=== PATIENT | female | born 1960 | race Asian ===

== ENCOUNTER 2017-02-11 08:15 | Observation (INO) | payer MEDICARE, MEDICAID ==
[~2017-02-11] VITALS: Ht 154.9 cm; Wt 53.0 kg
[~2017-02-11 08:15] MED LIST: CLON1TAB23 PO; HYDR1TAB12 PO; PROZAC; RISP2TAB3 PO; TRAZODONE; VALP250C59 PO
[2017-02-11] MEDS ORDERED: ASPIRIN 81 MG TABLET CHEW PO ONE (09:00)
[2017-02-11] MEDS ORDERED: ASPIRIN 81 MG TABLET CHEW ONE (09:09)
[2017-02-11] MEDS ORDERED: TRAZ100T15 PO (09:19)
[2017-02-11] MEDS ORDERED: FLUO20CA19 PO (09:19)
[2017-02-11 09:35] LABS: HEMATOCRIT 42.6 % (34.6-47.8); HEMOGLOBIN 14.5 g/dL (11.7-16.4); WHITE BLOOD COUNT 9.7 x10^3/uL (3.4-10)
[2017-02-11 09:50] LABS: ASPARTATE AMINO TRANSFERASE 25 U/L (15-37); BLOOD UREA NITROGEN 10 mg/dL (7-18)
[2017-02-11 09:55] LABS: DAU SCREEN DISCLAIMER; HCG UR LOT HCG7030192
[2017-02-11 10:01] LABS: ACETAMINOPHEN < 2 mcg/mL (10-30); IS PT STATUS REG ER OR PRE ER? YES
[2017-02-11 10:01] LABS: HCG UR OBC PASS
[2017-02-11] MEDS ORDERED: POLYETHYLENE GLYCOL 17 GM PACKET PO PRN (13:30)
[2017-02-11] MEDS ORDERED: LORazepam 2 MG/ML, 1ML IM PRN (13:30)
[2017-02-11] MEDS ORDERED: NICOTINE 14MG/24 HR PATCH.TD24 TD SCH (13:30)
[2017-02-11] MEDS ORDERED: DOCUSATE 100 MG CAPSULE PO PRN (13:30)
[2017-02-11] MEDS ORDERED: ACETAMINOPHEN 325 MG TABLET PO PRN (13:30)
[2017-02-11] MEDS ORDERED: LORazepam 1MG TABLET PO PRN (13:30)
[2017-02-11] MEDS ORDERED: ONDANSETRON ODT 4 MG PO PRN (13:30)
[2017-02-11] MEDS ORDERED: OMNIPAQUE 350 MG/ML, 75ML BOTTLE ONE (14:59)
[2017-02-11 15:59] VITALS: BP 135/88
[2017-02-11] MEDS ORDERED: TRAZODONE 100MG TABLET ONE (19:14)
[2017-02-11 20:08] VITALS: BP 132/87
[2017-02-11] MEDS ORDERED: TRAZODONE 100MG TABLET PO SCH (21:00)
[2017-02-12] MEDS ORDERED: FLUOXETINE 20 MG CAPSULE PO SCH (09:00)
== END 2017-02-12 00:28 ==
LOC: ED 08:41 → EDIP 10:57 → 3E 13:29
PROVIDERS: ADMIT Internal Medicine; ATTEND Internal Medicine
DX: R45.851 Suicidal ideations (principal); F32.9 Major depressive disorder, single episode, unspecified; F20.0 Paranoid schizophrenia; F17.210 Nicotine dependence, cigarettes, uncomplicated; Z82.49 Family history of ischemic heart disease and other diseases of the circulatory system
CPT/HCPCS: 36415; 71010; 71260; 80053; 80307; 80329; 81003; 81025; 84439; 84443; 84484; 85025; 93005; 99285; G0378; Q9967; G0479; G0480

== ENCOUNTER 2017-10-08 13:55 | Emergency (ER) | payer MEDICARE, MEDICAID ==
[~2017-10-08] VITALS: Ht 154.9 cm; Wt 61.0 kg
[~2017-10-08 13:55] MED LIST changes: +FLUO20CA19 PO; +TRAZ-137 PO
[2017-10-08 14:51] LABS: BASOPHILS # (AUTO) 0.04 x10^3/uL (0-0.1); BASOPHILS % (AUTO) 1 % (0-1); EOSINOPHILS # (AUTO) 0.06 x10^3/uL (0-0.4); EOSINOPHILS % (AUTO) 1 % (1-7); LYMPHOCYTES # (AUTO) 2.05 x10^3/uL (1-3.4); LYMPHOCYTES % (AUTO) 27 % (22-44); MD NO; MEAN CORPUSCULAR HEMOGLOBIN 31.8 pg (27.0-34.8); MEAN CORPUSCULAR HGB CONC 33.9 g/dL (32.4-35.8); MEAN CORPUSCULAR VOLUME 93.8 fL (80-100); MEAN PLATELET VOLUME 7.4 fL (7.4-10.4); MONOCYTES % (AUTO) 4 % (2-9); NEUTROPHILS # (AUTO) 5.12 x10^3/uL (1.8-6.8); NEUTROPHILS % (AUTO) 68 % (42-75); PLATELET COUNT 294 x10^3/uL (130-400); RED BLOOD COUNT 4.82 x10^6/uL (3.82-5.3); RED CELL DISTRIBUTION WIDTH 13.2 % (9.6-15.2)
[2017-10-08] MEDS ORDERED: PIPERONYL BUTOXIDE/PYRETHRINS SHAMPOO TP SCH (15:00)
[2017-10-08 15:01] LABS: ALANINE AMINOTRANSFERASE 20 U/L (12-78); ALBUMIN 4.1 g/dL (3.4-5.0); ANION GAP 6 mmol/L (5-15); CHLORIDE 110 mmol/L (98-107); CREATININE 0.83 mg/dL (0.55-1.02)
[2017-10-08 15:03] LABS: ALKALINE PHOSPHATASE 100 U/L (45-117); BILIRUBIN,TOTAL 0.3 mg/dL (0.2-1.0); SALICYLATE LEVEL 3.9 mg/dL (2.8-20.0); TOTAL PROTEIN 7.6 g/dL (6.4-8.2)
[2017-10-08 15:04] LABS: ACETAMINOPHEN < 2 mcg/mL (10-30)
[2017-10-08 16:03] LABS: MICROSCOPIC AUTO
[2017-10-08 16:06] LABS: CULTURE INDICATED? YES
[2017-10-08 16:44] LABS: AMPHETAMINE SCREEN, URINE Negative (Negative); BARBITURATE SCREEN, URINE Negative (Negative); BENZODIAZEPINE SCREEN, URINE Negative (Negative); CANNABINOID SCREEN, URINE Negative (Negative); COCAINE SCREEN, URINE Negative (Negative); METHADONE SCREEN, URINE Negative (Negative); OPIATE SCREEN, URINE Negative (Negative)
[2017-10-08] MEDS ORDERED: FLUO10CA13 PO (17:46)
[2017-10-08] MEDS ORDERED: TRAZ-136 PO (17:46)
[2017-10-08] MEDS ORDERED: OLAN5TAB3 PO (17:46)
[2017-10-08] MEDS ORDERED: cogentin PO (17:46)
[2017-10-09 09:28] VITALS: BP 112/68
== END 2017-10-09 12:11 | disposition other institution (70) ==
LOC: ED 23:39
DX: F33.3 Major depressive disorder, recurrent, severe with psychotic symptoms (principal); B85.0 Pediculosis due to Pediculus humanus capitis; F20.0 Paranoid schizophrenia
CPT/HCPCS: 36415; 80053; 80307; 80329; 81001; 85025; 87086; 99285; G0480

== ENCOUNTER 2018-02-07 06:07 | Observation (INO) | payer MEDICARE, MEDICAID ==
[~2018-02-07] VITALS: Ht 154.9 cm; Wt 56.0 kg
[~2018-02-07 06:07] MED LIST changes: +FLUO10CA13 PO; +OLAN5TAB3 PO; +TRAZ50TA66 PO; +cogentin PO
[2018-02-07 06:44] LABS: AMPHETAMINE SCREEN, URINE Negative (Negative); BARBITURATE SCREEN, URINE Negative (Negative); BENZODIAZEPINE SCREEN, URINE Negative (Negative); CANNABINOID SCREEN, URINE Negative (Negative); COCAINE SCREEN, URINE Negative (Negative); METHADONE SCREEN, URINE Negative (Negative); OPIATE SCREEN, URINE Negative (Negative)
[2018-02-07 06:48] LABS: BASOPHILS # (AUTO) 0.04 x10^3/uL (0-0.1); BASOPHILS % (AUTO) 1 % (0-1); EOSINOPHILS # (AUTO) 0.11 x10^3/uL (0-0.4); EOSINOPHILS % (AUTO) 2 % (1-7); LYMPHOCYTES # (AUTO) 1.46 x10^3/uL (1-3.4); LYMPHOCYTES % (AUTO) 23 % (22-44); MD NO; MEAN CORPUSCULAR HGB CONC 33.1 g/dL (32.4-35.8); MEAN CORPUSCULAR VOLUME 93.8 fL (80-100); MEAN PLATELET VOLUME 6.9 fL (7.4-10.4); MONOCYTES # (AUTO) 0.28 x10^3/uL (0.2-0.8); MONOCYTES % (AUTO) 4 % (2-9); NEUTROPHILS # (AUTO) 4.59 x10^3/uL (1.8-6.8); NEUTROPHILS % (AUTO) 71 % (42-75); PLATELET COUNT 320 x10^3/uL (130-400); RED CELL DISTRIBUTION WIDTH 12.8 % (9.6-15.2)
[2018-02-07 06:59] LABS: ALBUMIN 3.6 g/dL (3.4-5.0); ANION GAP 7 mmol/L (5-15); CALCIUM 8.4 mg/dL (8.5-10.1); CHLORIDE 110 mmol/L (98-107); SALICYLATE LEVEL 3.4 mg/dL (2.8-20.0)
[2018-02-07 07:06] LABS: ACETAMINOPHEN < 2 mcg/mL (10-30)
[2018-02-07] MEDS ORDERED: BACLOFEN 10 MG TABLET PO PRN (12:00)
[2018-02-07] MEDS ORDERED: HALOPERIDOL 5 MG/ML IM PRN (12:00)
[2018-02-07] MEDS ORDERED: NICOTINE 21 MG/24 HR PATCH.TD24 TD SCH (12:00)
[2018-02-07] MEDS ORDERED: ACETAMINOPHEN 325 MG TABLET PO PRN (12:00)
[2018-02-07] MEDS ORDERED: NICOTINE 21 MG/24 HR PATCH.TD24 ONE (12:17)
[2018-02-07] MEDS ORDERED: BENZTROPINE 1 MG TABLET PO PRN (16:30)
[2018-02-07 19:47] VITALS: BP 108/74
[2018-02-07] MEDS ORDERED: OLANZAPINE 5 MG TABLET PO SCH (21:00)
[2018-02-07] MEDS ORDERED: TRAZODONE 100MG TABLET PO SCH (21:00)
[2018-02-08] MEDS ORDERED: FLUOXETINE 10 MG CAP PO SCH (09:00)
== END 2018-02-07 23:18 ==
LOC: ED 07:17 → SUATTDRO 11:25 → EDIP 11:40 → 2N 13:26
PROVIDERS: ADMIT Internal Medicine; ATTEND Internal Medicine
DX: R45.851 Suicidal ideations (principal); F32.3 Major depressive disorder, single episode, severe with psychotic features; Z79.899 Other long term (current) drug therapy; Z87.891 Personal history of nicotine dependence
CPT/HCPCS: 36415; 71046; 80048; 80307; 80329; 82040; 85025; 99284; G0378; G0480